=== PATIENT | female | born 1950 | race Caucasian/White ===

== ENCOUNTER 2020-05-03 08:28 | Outpatient (CLI) | payer MEDICARE, OTHER, SELFPAY ==
--- NOTE | ~2020-05-03 | XR_ITS ---
XR hip LT min 2V DATE: 05/03/2020 08:45 INDICATION: Left artificial hip joint TECHNIQUE: AP, lateral, crosstable lateral views of left hip COMPARISON: 05/05/2019 pelvis and left hip [ FINDINGS: Bilateral total hip arthroplasties are noted. No recent fracture or dislocation or bone destruction is evident at the left hip. No left hip joint hardware loosening or displacement is evident. Diffuse osteopenia. IMPRESSION: Sepsis left total hip arthroplasty Osteopenia Reviewed, dictated and finalized at location B.
== END 2020-05-03 08:29 | disposition home or self-care (01) ==
LOC: CHSIMG 08:31
PROVIDERS: PCP Internal Medicine; Visit Provider Orthopaedic Surgery
DX: Z96.642 Presence of left artificial hip joint (principal)
CPT/HCPCS: 73502

== ENCOUNTER 2021-12-26 08:13 | Outpatient (CLI) | payer MEDICARE, OTHER, SELFPAY ==
--- NOTE | ~2021-12-26 | MM_ITS ---
EXAMINATION: MM screening [facility] BI w kavon HISTORY: Screening mammogram TECHNIQUE: Craniocaudal and mediolateral oblique 3-D tomosynthesis images were obtained and synthetic 2-D images were generated. CAD analysis was submitted and interpreted. COMPARISON: 11/26/2018, 09/09/2017 BREAST PARENCHYMAL COMPOSITION: There are scattered areas of fibroglandular density. FINDINGS: There is no suspicious mass, calcification, or architectural distortion to suggest malignan cy in either breast. There has been no suspicious interval change. IMPRESSION: 1. No mammographic evidence of malignancy. 2. Recommend routine screening mammography in one year. BI-RADS Category 1: Negative Reviewed, dictated and finalized at location A.
== END 2021-12-26 08:14 | disposition home or self-care (01) ==
LOC: CHSIMG 08:14
PROVIDERS: PCP Internal Medicine; Visit Provider Student in an Organized Health Care Education/Training Program
DX: Z12.31 Encounter for screening mammogram for malignant neoplasm of breast (principal)
CPT/HCPCS: 77063; 77067

== ENCOUNTER 2023-03-06 08:57 | Outpatient (CLI) | payer MEDICARE, OTHER, SELFPAY ==
--- NOTE | ~2023-03-06 | MM_ITS ---
EXAMINATION: MM screening [facility] w kavon HISTORY: Screening TECHNIQUE: Craniocaudal and mediolateral oblique 3-D tomosynthesis images were obtained and synthetic 2-D images were generated. CAD analysis was submitted and interpreted. COMPARISON: Comparison to multiple prior studies sequentially, with oldest reviewed study dated 08/30. BREAST PARENCHYMAL COMPOSITION: There are scattered areas of fibroglandular density. FINDINGS: There is no evidence of suspicious mass, calcification, or architectural distortion to sugg est malignancy in either breast. There has been no suspicious interval change. IMPRESSION: 1. No mammographic evidence of malignancy. 2. Recommend routine screening mammography in one year. BI-RADS Category 1: Negative Reviewed, dictated and finalized at location A.
== END 2023-03-06 08:58 | disposition home or self-care (01) ==
LOC: CHSIMG 08:58
PROVIDERS: PCP Internal Medicine; Visit Provider Obstetrics & Gynecology
DX: Z12.31 Encounter for screening mammogram for malignant neoplasm of breast (principal)
CPT/HCPCS: 77063; 77067